=== PATIENT | female | born 2000 | race Caucasian/White ===

== ENCOUNTER 2020-08-02 17:51 | Outpatient (CLI) | payer OTHER ==
[~2020-08-02] VITALS: Ht 170.2 cm; Wt 79.1 kg
[2020-08-02 18:19] VITALS: BP 120/72
[2020-08-02] MEDS ORDERED: PRENTAB9 PO (18:28)
[2020-08-02] MEDS ORDERED: ZOLO100T PO (18:29)
[2020-08-02] MEDS ORDERED: COLA100C5 PO (18:30)
[2020-08-02 18:36] VITALS: BP 121/64
[2020-08-02 19:20] VITALS: BP 116/65
== END 2020-08-02 19:30 | disposition home or self-care (01) ==
LOC: M LDO 17:51
PROVIDERS: ATTEND Registered Nurse
DX: O26.893 Other specified pregnancy related conditions, third trimester (principal); Z3A.38 38 weeks gestation of pregnancy
CPT/HCPCS: 59025; G0378; G0463

== ENCOUNTER 2020-08-07 21:08 | Inpatient (IN) | payer OTHER, SELFPAY ==
[~2020-08-07] VITALS: Ht 170.2 cm; Wt 81.1 kg
[~2020-08-07 21:08] MED LIST: COLA100C5 PO; PRENTAB9 PO; ZOLO100T PO
[2020-08-07 21:27] VITALS: BP 123/64
[2020-08-07] MEDS: LR 1,000 ML IV SCH (23:00)
[2020-08-07 23:11] LABS: HEMOGLOBIN 12.3 g/dl (12.0-15.5); MEAN CORPUSCULAR HEMOGLOBIN 31.9 pg (27.0-33.0); MEAN CORPUSCULAR HGB CONC 34.2 g/dl (32.0-36.5); MEAN CORPUSCULAR VOLUME 93.5 fl (80.0-96.0); PLATELET COUNT, AUTOMATED 214 10^3/uL (150-450); RED BLOOD COUNT 3.85 10^6/uL (4.00-5.40); WHITE BLOOD COUNT 15.7 10^3/uL (4.0-10.0)
[2020-08-07] MEDS ORDERED: LR 1,000 ML IV ONE (23:15)
[2020-08-07] MEDS ORDERED: FENTANYL 2MCG/ML ROPIVACAINE 0.2% IN 0.9% NACL 100ML IVBAG As Ordered ONE (23:41)
[2020-08-07 23:54] VITALS: BP 126/73
[2020-08-07 23:59] VITALS: BP 123/77
[2020-08-08] VITALS (25 sets, daily range): BP systolic 100–140; BP diastolic 53–97
[2020-08-08] MEDS ORDERED: ONDANSETRON 4MG/2ML VIAL IV PRN (00:13)
[2020-08-08] MEDS ORDERED: NALOXONE INJ 0.4MG/1ML VIAL (J2310 PER 1MG) IV PRN (00:13)
[2020-08-08] MEDS ORDERED: diphenhydrAMINE 50MG/ML VIAL (J1200) IV PRN (00:13)
[2020-08-08] MEDS ORDERED: REFRIGERATOR IV KEYS XX PRN (00:13)
[2020-08-08] MEDS ORDERED: EPIDURAL/PCA KEYS XX PRN (00:13)
[2020-08-08] MEDS ORDERED: EPIDURAL COMMENT XX SCH (00:13)
[2020-08-08] MEDS ORDERED: LACTATED RINGER'S 1000 ML IV PRN (00:13)
[2020-08-08] MEDS ORDERED: ePHEDrine SULFATE 25 MG/5 ML(5MG/ML) SYRINGE IV PRN (00:13)
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
[2020-08-08] MEDS ORDERED: OXYTOCIN 30 UNITS IN 0.9% NaCl 500ML IV BAG (J2590) As Ordered ONE (02:24)
[2020-08-08] MEDS ORDERED: LR 1,000 ML IV SCH (02:59)
[2020-08-08] MEDS ORDERED: ANUSOL HC CREAM 30GM TOP PRN (03:00)
[2020-08-08] MEDS ORDERED: ACETAMINOPHEN 500 MG TAB PO PRN (03:00)
[2020-08-08] MEDS ORDERED: OXYTOCIN DRIP 30 UNITS in IV 1 EA IV ONE (03:00)
[2020-08-08] MEDS ORDERED: IBUPROFEN 600MG TAB PO PRN (03:00)
[2020-08-08] MEDS ORDERED: DIBUCAINE 1% OINTMENT 30GM TOP PRN (03:00)
[2020-08-08] MEDS ORDERED: MOM 30ML SUSPENSION UDC PO PRN (03:00)
[2020-08-08] MEDS ORDERED: MEASLES,MUMPS,RUBELLA VACCINE INJ (MMR-II) (90707) SC SCH (03:00)
[2020-08-08] MEDS ORDERED: METHYLERGONOVINE MALEATE 0.2 MG TAB PO PRN (03:00)
[2020-08-08] MEDS ORDERED: OXYTOCIN INJ 10 UNITS/ML VIAL (J2590) IV ONE ×2 (03:00→04:30)
[2020-08-08] MEDS ORDERED: RHOGAM 300 MCG (1500 IU) INJ (J2790) IM SCH (03:00)
[2020-08-08] MEDS ORDERED: DOCUSATE SODIUM 100 MG CAP PO PRN (03:00)
[2020-08-08] MEDS ORDERED: ACETAMINOPHEN TAB 650MG DOSE (2X325MG) PO PRN (03:00)
[2020-08-08 03:02] LABS: CORD GAS ABE V -3.4; CORD GAS HCO3 V 23.3 MEQ/L; CORD GAS O2 SAT V 59.5 %; CORD GAS PCO2 V 47.9 mmHg; CORD GAS PH V 7.305 UNITS; CORD GAS PO2 V 25.2 mmHg; CORD GAS SBC V 20.7 MEQ/L; CORD GAS TCO2 V 24.8 MEQ/L
[2020-08-08 03:05] LABS: CORD GAS ABE A -1.2; CORD GAS HCO3 A 29.2 MEQ/L; CORD GAS O2 SAT A 17.4 %; CORD GAS PCO2 A 75.7 mmHg; CORD GAS PH A 7.204 UNITS; CORD GAS PO2 A 12.7 mmHg; CORD GAS SBC A 21.5 MEQ/L; CORD GAS TCO2 A 31.5 MEQ/L
--- NOTE | 2020-08-08 03:13 | DNPDOC ---
[facility] Delivery Note Delivery Note DATE OF DELIVERY: 08/08/2020 PREDELIVERY DIAGNOSIS: 38.5 weeks' gestation and labor. POST DELIVERY DIAGNOSIS: Delivered. PROCEDURE: [Spontaneous vaginal delivery RELIEF PHARMACIST: Dr. Harley MINOR MD ANESTHESIA: EPIDURAL ESTIMATED BLOOD LOSS: 200 ML FINDINGS: 7 pound 3 ounce FEMALE , Score 8/9 TERMINAL MECONIUM DELIVERY SUMMARY: Patient is a 20 year-old 2 now para 1 who was admitted to labor and delivery , PATIENT HAD SPONTANEOUS VAGINAL DELIVERY OF FEMALE OVER INTACT PERINEUM , TERMINAL MECONIUM ARTERIAL AND BRENDA PH DONE SPONTANEOUS PLACENTA 3 VESSELS COMPLETE UTERUS CONTRACTED DOWN ON PITOCIN . EXAMINATION ANTERIOR POSTERIOR REED COMPLETE SPHINCTER TIGHT CERVIX INTACT . Darryl Minor MD Aug 08, 2020 03:13
[2020-08-08] MEDS: FENTANYL/ROPIVACAINE/NACL BAG 100 ML EPIDURAL SCH ×2 (04:15→07:07)
[2020-08-08] MEDS: LR 1,000 ML IV SCH ×2 (07:15→15:15)
[2020-08-08] MEDS: PRENATAL VITAMINS CHEWABLE TABLET PO SCH (07:51)
[2020-08-08] MEDS: IBUPROFEN 800 MG TAB PO PRN ×2 (07:52→19:22)
[2020-08-08] MEDS: SERTRALINE 100 MG TAB PO SCH (20:43)
[2020-08-09 05:42] VITALS: BP 111/69
[2020-08-09 07:14] LABS: HEMATOCRIT 36.9 % (36.0-47.0); HEMOGLOBIN 12.1 g/dl (12.0-15.5); MEAN CORPUSCULAR HEMOGLOBIN 31.8 pg (27.0-33.0); MEAN CORPUSCULAR HGB CONC 32.8 g/dl (32.0-36.5); MEAN CORPUSCULAR VOLUME 96.9 fl (80.0-96.0); PLATELET COUNT, AUTOMATED 183 10^3/uL (150-450); RED BLOOD COUNT 3.81 10^6/uL (4.00-5.40); WHITE BLOOD COUNT 15.5 10^3/uL (4.0-10.0)
[2020-08-09] MEDS: IBUPROFEN 800 MG TAB PO PRN ×2 (07:32→18:32)
[2020-08-09] MEDS ORDERED: DIBU10OI TOP (08:04)
[2020-08-09] MEDS ORDERED: SERT-138 PO (08:04)
[2020-08-09] MEDS ORDERED: IBUP80TA PO (08:04)
[2020-08-09] MEDS: PRENATAL VITAMINS CHEWABLE TABLET PO SCH (09:53)
[2020-08-09] MEDS: SERTRALINE 100 MG TAB PO SCH (09:53)
--- NOTE | 2020-08-09 14:08 | DS ---
DATE OF ADMISSION: 08/07/2020 DATE OF DISCHARGE: 08/09/2020 BRIEF HISTORY: 22-year-old 2, now para 2 admitted at 38 and 5 weeks of gestation in active labor, has an epidural in place. Spontaneous vaginal delivery female infant, 7 pounds, 3 ounces, 3279 grams, of 8 and 9 in 1 and 5 minutes respectively. Terminal meconium is noted at delivery. Arterial pH is 7.20, base excess -1.2, venous pH 7.30, base excess -3.4. She suffers from posttraumatic stress disorder (PTSD) on Zoloft 100 mg q a.m. She had late entry to care at 38 and 1 weeks of gestation, had a previous history of STD in 2019 and she is bipolar. Blood pressure on discharge was 111/69, respirations are 18, pulse 62, temperature is 98.2. Admitting hemoglobin is 12.3, hematocrit is 36.0 and platelets 214. Discharge hemoglobin 12.1, hematocrit 36.9 and platelets are 183. The rest of the examination unremarkable. Normocephalic, atraumatic. Neck: Full range of motion. Pupils equal and reactive to light. Distal pulses are symmetric. No evidence of deep venous thrombosis (DVT), pulmonary embolus (PE) or superficial phlebitis. Chest is clear bilaterally at the bases. No wheezes or rhonchi. No costovertebral angle (CVA) tenderness. Abdomen is soft. Four quadrant bowel sounds are noted. Uterus 2 below, lochia is moderate. Perineum is intact. No rashes, lesions or pruritus. No arthralgias, myalgias, no complaint of joint pain. No complaint of cough, wheeze, shortness of breath or dyspnea on exertion. No nausea, vomiting, diarrhea or constipation. No urgency or frequency. She has complaint of nipple pain at the time of latching on. We have consulted field technical support consultant prior to discharge. All questions were answered, 20 minute discussion. The patient has all her medications at [facility] to pick at discharge. Six week checkup at [facility], 20 minute discussion. [facility]
[2020-08-09 17:57] VITALS: BP 129/78
== END 2020-08-09 19:00 | disposition home or self-care (01) | DRG 560 ==
LOC: M LDO 21:08 → M LDI 23:02 → M OBS 08-08 05:00
PROVIDERS: ADMIT Obstetrics & Gynecology; ATTEND Obstetrics & Gynecology
PROC: 10E0XZZ Delivery of Products of Conception, External Approach (ICD-10-PCS; principal; 2020-08-08)
DX: O99.344 Other mental disorders complicating childbirth (principal); Z37.0 Single live birth; Z3A.38 38 weeks gestation of pregnancy; F43.10 Post-traumatic stress disorder, unspecified; F31.9 Bipolar disorder, unspecified

== ENCOUNTER 2020-12-11 16:39 | Emergency (ER) | payer OTHER, SELFPAY ==
[~2020-12-11] VITALS: Ht 170.2 cm; Wt 72.2 kg
[~2020-12-11 16:39] MED LIST changes: +DIBU10OI TOP; +IBUP80TA PO; +SERT-138 PO
[2020-12-11] MEDS ORDERED: LAMO100T3 (16:55)
[2020-12-11] MEDS ORDERED: MIRA3350 PO (16:55)
[2020-12-11] MEDS ORDERED: suppository RC (16:55)
--- NOTE | 2020-12-11 17:29 | REP ---
INDICATION: constipation COMPARISON: None. TECHNIQUE: Supine view of the abdomen and pelvis. FINDINGS: Bowel gas pattern is nonspecific and without obstruction or perforation. No organomegaly. No abnormal calcifications. Skeletal structures intact. IMPRESSION: Normal abdominal radiograph. <Electronically signed by Justyn Arizmendi > 12/11/20 [id number]
[2020-12-11] MEDS ORDERED: FLEET OIL RETENTION ENEMA PR STA (17:44)
[2020-12-11] MEDS ORDERED: POLYETHYLENE GLYCOL (MIRALAX) 238GM BOTTLE PO ONE (18:50)
[2020-12-11] MEDS ORDERED: DOCUSATE SODIUM 100MG CAPSULE PO ONE (18:50)
[2020-12-11] MEDS ORDERED: COLA100C5 PO (18:52)
[2020-12-11] MEDS ORDERED: NULYTELY SOLN 4000ML BTL PO ONE (19:00)
[2020-12-11 19:24] VITALS: BP 100/62
== END 2020-12-11 19:25 | disposition home or self-care (01) ==
LOC: M ED 16:39
DX: K59.00 Constipation, unspecified (principal); Z79.899 Other long term (current) drug therapy

== ENCOUNTER 2021-05-03 20:05 | Emergency (ER) | payer SELFPAY ==
[~2021-05-03] VITALS: Ht 170.2 cm; Wt 71.3 kg
[2021-05-03 20:05] VITALS: BP 130/63
[~2021-05-03 20:05] MED LIST changes: -DIBU10OI TOP; +DIBU28OI2 TOP; +LAMO100T3; +MIRA3350 PO; +suppository RC
== END 2021-05-04 00:28 | disposition left against medical advice (07) ==
LOC: M ED 20:05
DX: Z53.21 Procedure and treatment not carried out due to patient leaving prior to being seen by health care provider (principal)